=== PATIENT | female | born 1960 | race Caucasian/White ===

== ENCOUNTER 2020-03-19 11:24 | Inpatient (IN) | payer OTHER ==
[2020-03-19] MEDS ORDERED: PIPERACILLIN/TAZOB 4.5 GM 4.5 GM in DEXTROSE 5%-WATER 100 ML IVPB ONE ×2 (11:42→13:50)
[2020-03-19] MEDS ORDERED: VANCOMYCIN 1,000 MG in DEXTROSE 5%-WATER - 250 ML IVPB ONE (11:42)
[2020-03-19] MEDS ORDERED: SODIUM CHLORIDE 1,000 ML IV STA (11:45)
[2020-03-19] MEDS ORDERED: VANCOMYCIN 1 GRAM (PRE-DOCKED) 1,000 MG/250 ML BAG IVPB ONE (12:11)
[2020-03-19] MEDS ORDERED: ACETAMINOPHEN 1000 MG/100 ML VIAL (NON FORMULARY) IVPB ONE (12:33)
[2020-03-19 12:39] LABS: VENOUS BASE EXCESS -1.7 mmol/L (-2-2); VENOUS O2 SATURATION 55.3 % (70-80); VENOUS PCO2 39.9 mmHg (38-52); VENOUS PH 7.382 (7.310-7.410)
[2020-03-19 12:45] LABS: BASO % 0.2 % (0-2.0); HEMATOCRIT 43.3 % (32.4-45.2); LYMPH % 8.8 % (8-40); MCH 29.7 pg (25.7-33.7); MCHC 32.4 g/dl (32.0-36.0); MEAN CELL VOLUME 91.6 fl (80-96); MEAN PLT VOLUME 11.2 fl (7.5-11.1); MONO % 7.7 % (3.8-10.2); NEUT % 83.3 % (42.8-82.8); PLATELET COUNT 168 K/MM3 (134-434); RBC 4.73 M/mm3 (3.60-5.2); RDW 15.9 % (11.6-15.6); WHITE BLOOD COUNT 10.2 K/mm3 (4.0-10.0)
[2020-03-19 12:46] LABS: INR 1.11 (0.83-1.09); PROTHROMBIN TIME (PATIENT) 13.4 SEC (9.7-13.0)
[2020-03-19 12:48] LABS: ACTIVATED PTT 32.5 SECONDS (25.2-36.5)
[2020-03-19 13:07] LABS: ALBUMIN 3.2 g/dl (3.4-5.0); BLOOD UREA NITROGEN 11.1 mg/dL (7-18); CALCIUM 8.6 mg/dL (8.5-10.1); CREATININE 0.8 mg/dL (0.55-1.3); TOT PROT 6.5 g/dl (6.4-8.2)
[2020-03-19 13:16] LABS: EPI CELLS >36 /uL (0-25.1); HYALINE CASTS 36 /uL (0-3.1); PH,URINE 7.5 (5.0-8.0); URINE APPEARANCE TURBID; URINE BACTERIA >9,000 /uL (0-1359); URINE BILIRUBIN NEGATIVE (NEGATIVE); URINE COLOR DK YELLOW; URINE GLUCOSE (UA) NEGATIVE (NEGATIVE); URINE KETONE 1+ (NEGATIVE); URINE LEUK ESTERASE 3+ (NEGATIVE); URINE NITRITE POSITIVE (NEGATIVE); URINE PROTEIN 1+ (NEGATIVE); URINE WBC 7029 /uL (0-25.8)
[2020-03-19] MEDS ORDERED: PIPERACILLIN/TAZOB 4.5 GM 4.5 GM/100 ML BAG IVPB ONE (13:43)
[2020-03-19 13:46] LABS: URINE RBC 115.3 /uL (0-23.9); YEAST NON SEEN (NEGATIVE)
[2020-03-19 16:01] LABS: POTASSIUM 3.3 mmol/L (3.5-5.1)
[2020-03-19 16:03] LABS: CALCIUM 8.1 mg/dL (8.5-10.1)
[2020-03-19 16:04] LABS: BLOOD UREA NITROGEN 10.6 mg/dL (7-18)
[2020-03-19 16:07] LABS: CREATININE 0.7 mg/dL (0.55-1.3)
[2020-03-19 16:08] LABS: BILIRUBIN,TOTAL 0.6 mg/dL (0.2-1); TOT PROT 5.7 g/dl (6.4-8.2)
[2020-03-19] MEDS ORDERED: KCL 10 MEQ IVPB 10 MEQ/100 ML INFUS.BAG IVPB ONE (16:18)
[2020-03-19] MEDS: KCL 10 MEQ IVPB 10 MEQ/100 ML INFUS.BAG IVPB SCH ×3 (16:23→21:59)
[2020-03-19] MEDS: LACTATED RINGERS SOLUTION 1,000 ML/1,000 ML INFUS.BAG IV SCH (16:27)
[2020-03-19] MEDS ORDERED: KCL 10 MEQ IVPB 20 MEQ/200 ML INFUS.BAG IVPB ONE (16:30)
[2020-03-19] MEDS ORDERED: PATIENT'S OWN MEDICATION (NON-FORMULARY) (Magnesium Hydrox 2400mg/30ml 30 ML) PO SCH (16:45)
[2020-03-19] MEDS: ACETAMINOPHEN 325 MG TABLET (FP) PO SCH (16:50)
[2020-03-19] MEDS ORDERED: PIPERACILLIN/TAZOB 3.375 GM 3.375 GM/50 ML BAG IVPB ONE (20:00)
[2020-03-19] MEDS: PIPERACILLIN/TAZOB 3.375 GM 3.375 GM in DEXTROSE 5%-WATER - 50 ML IVPB SCH (20:11)
[2020-03-19] MEDS ORDERED: SENNOSIDES 8.6MG TABLET (FP) PO SCH (22:00)
[2020-03-19] MEDS ORDERED: CLOZAPINE 150 MG PO SCH (22:00)
[2020-03-19] MEDS: INSULIN SLIDING SCALE (NOVOLOG) 1 VIAL SQ SCH (22:32)
[2020-03-19] MEDS: LATANOPROST 0.005% OPHTH SOLN 2.5ML BOTTLE OU SCH (22:55)
[2020-03-20] MEDS: clonazePAM 0.5 MG TABLET PO SCH ×2 (00:11→11:22)
[2020-03-20] MEDS: ACETAMINOPHEN 325 MG TABLET (FP) PO SCH ×5 (00:12→23:13)
[2020-03-20 00:44] VITALS: BMI 37.4
[2020-03-20] MEDS ORDERED: DEXTROSE 5%-WATER - 50 ML IVPB ONE ×3 (01:42→11:18)
[2020-03-20] MEDS ORDERED: PIPERACILLIN/TAZOBACTAM 3.375 GM VIAL IVPB ONE ×2 (01:42→09:16)
[2020-03-20] MEDS: PIPERACILLIN/TAZOB 3.375 GM 3.375 GM in DEXTROSE 5%-WATER - 50 ML IVPB SCH ×2 (03:23→09:19)
[2020-03-20] MEDS: LACTATED RINGERS SOLUTION 1,000 ML/1,000 ML INFUS.BAG IV SCH (05:01)
[2020-03-20] MEDS: INSULIN SLIDING SCALE (NOVOLOG) 1 VIAL SQ SCH ×4 (06:17→23:12)
[2020-03-20] MEDS ORDERED: CLOZAPINE PO SCH ×2 (07:00→08:30)
[2020-03-20] MEDS ORDERED: POTASSIUM CHLORIDE TABS 20 MEQ TABLET.ER (FP) PO ONE (07:50)
[2020-03-20 08:33] LABS: BASO % 0.4 % (0-2.0); EOS % 0.3 % (0-4.5); HEMATOCRIT 39.1 % (32.4-45.2); HEMOGLOBIN 12.8 GM/dL (10.7-15.3); LYMPH % 18.4 % (8-40); MCH 29.4 pg (25.7-33.7); MCHC 32.7 g/dl (32.0-36.0); MEAN CELL VOLUME 89.7 fl (80-96); MEAN PLT VOLUME 10.5 fl (7.5-11.1); MONO % 6.4 % (3.8-10.2); NEUT % 74.5 % (42.8-82.8); PLATELET COUNT 155 K/MM3 (134-434); RBC 4.36 M/mm3 (3.60-5.2); RDW 15.8 % (11.6-15.6); WHITE BLOOD COUNT 5.5 K/mm3 (4.0-10.0)
[2020-03-20] MEDS ORDERED: CEFAZOLIN 1 GM in DEXTROSE 5%-WATER - 50 ML IVPB SCH (10:00)
[2020-03-20 10:02] LABS: POTASSIUM 4.2 mmol/L (3.5-5.1)
[2020-03-20 10:05] LABS: BLOOD UREA NITROGEN 7.4 mg/dL (7-18)
[2020-03-20 10:06] LABS: CALCIUM 8.6 mg/dL (8.5-10.1); MAGNESIUM 2.2 mg/dL (1.8-2.4)
[2020-03-20 10:08] LABS: CREATININE 0.5 mg/dL (0.55-1.3); PHOSPHOROUS 2.4 mg/dL (2.5-4.9)
[2020-03-20 10:09] LABS: BILIRUBIN,TOTAL 0.7 mg/dL (0.2-1); TOT PROT 5.8 g/dl (6.4-8.2)
[2020-03-20] MEDS: ENOXAPARIN NA (PORCINE) 40 MG/0.4 ML DISP.SYRIN SQ SCH (10:15)
[2020-03-20 10:30] LABS: PLATELET ESTIMATE DECREASED
[2020-03-20] MEDS ORDERED: SODIUM PHOSPHATE/NA BIPHOS 133 ML ENEMA RC ONE (11:15)
[2020-03-20] MEDS ORDERED: ceFAZolin SODIUM 1 GM VIAL ONE (11:18)
[2020-03-20] MEDS: ASPIRIN 81 MG CHEWABLE TABLETS PO SCH (11:21)
[2020-03-20] MEDS: ATORVASTATIN CA 10 MG TABLET (FP) PO SCH (11:21)
[2020-03-20] MEDS: LEVOTHYROXINE NA 100 MCG TABLET (FP) PO SCH (11:21)
[2020-03-20] MEDS: POLYETHYLENE GLYCOL 3350 119 GM BTL PO SCH (11:23)
[2020-03-20] MEDS ORDERED: POTASSIUM PHOSPHATE 30 MM in SODIUM CHLORIDE 500 ML IVPB ONE (11:30)
[2020-03-20] MEDS ORDERED: PT OWN MED DRAWER 7, Y5N ONE ×2 (13:01→22:23)
[2020-03-20] MEDS: SODIUM CHLORIDE 1,000 ML IV SCH (14:21)
[2020-03-20] MEDS ORDERED: cefTRIAXone SODIUM 1 GM VIAL ONE (16:59)
[2020-03-20] MEDS: CEFTRIAXONE 1 GM in DEXTROSE 5%-WATER - 50 ML IVPB SCH (17:02)
[2020-03-20] MEDS: guaiFENesin 600 MG TABLET.ER (FP) PO SCH (23:13)
[2020-03-20] MEDS: CLOZAPINE PO SCH (23:13)
[2020-03-20] MEDS: LATANOPROST 0.005% OPHTH SOLN 2.5ML BOTTLE OU SCH (23:14)
[2020-03-21] MEDS: ACETAMINOPHEN 325 MG TABLET (FP) PO SCH ×4 (05:28→22:54)
[2020-03-21] MEDS: INSULIN SLIDING SCALE (NOVOLOG) 1 VIAL SQ SCH ×4 (06:36→22:45)
[2020-03-21 07:59] LABS: HEMATOCRIT 39.2 % (32.4-45.2); HEMOGLOBIN 12.7 GM/dL (10.7-15.3); MCH 29.1 pg (25.7-33.7); MCHC 32.5 g/dl (32.0-36.0); MEAN CELL VOLUME 89.6 fl (80-96); MEAN PLT VOLUME 9.9 fl (7.5-11.1); PLATELET COUNT 159 K/MM3 (134-434); RBC 4.37 M/mm3 (3.60-5.2); RDW 15.3 % (11.6-15.6); WHITE BLOOD COUNT 4.7 K/mm3 (4.0-10.0)
[2020-03-21 08:20] LABS: BLOOD UREA NITROGEN 6.4 mg/dL (7-18); CALCIUM 8.6 mg/dL (8.5-10.1); MAGNESIUM 2.3 mg/dL (1.8-2.4)
[2020-03-21 08:24] LABS: CREATININE 0.5 mg/dL (0.55-1.3)
[2020-03-21] MEDS ORDERED: cefTRIAXone SODIUM 1 GM VIAL ONE (09:11)
[2020-03-21] MEDS ORDERED: DEXTROSE 5%-WATER - 50 ML IVPB ONE (09:11)
[2020-03-21] MEDS: CEFTRIAXONE 1 GM in DEXTROSE 5%-WATER - 50 ML IVPB SCH (09:13)
[2020-03-21] MEDS: LEVOTHYROXINE NA 100 MCG TABLET (FP) PO SCH (09:14)
[2020-03-21] MEDS: ENOXAPARIN NA (PORCINE) 40 MG/0.4 ML DISP.SYRIN SQ SCH (09:14)
[2020-03-21] MEDS: ATORVASTATIN CA 10 MG TABLET (FP) PO SCH (09:14)
[2020-03-21] MEDS: ASPIRIN 81 MG CHEWABLE TABLETS PO SCH (09:14)
[2020-03-21] MEDS: guaiFENesin 600 MG TABLET.ER (FP) PO SCH ×2 (09:14→22:54)
[2020-03-21] MEDS: SODIUM CHLORIDE 1,000 ML IV SCH (09:15)
[2020-03-21] MEDS: POLYETHYLENE GLYCOL 3350 119 GM BTL PO SCH (09:22)
[2020-03-21] MEDS: LATANOPROST 0.005% OPHTH SOLN 2.5ML BOTTLE OU SCH (22:46)
[2020-03-21] MEDS ORDERED: PT OWN MED DRAWER 7, Y5N ONE (22:50)
[2020-03-21] MEDS: CLOZAPINE PO SCH (22:56)
[2020-03-22] MEDS: ACETAMINOPHEN 325 MG TABLET (FP) PO SCH ×3 (04:48→16:50)
[2020-03-22] MEDS: SODIUM CHLORIDE 1,000 ML IV SCH ×2 (04:54→16:49)
[2020-03-22] MEDS: INSULIN SLIDING SCALE (NOVOLOG) 1 VIAL SQ SCH ×3 (06:17→17:06)
[2020-03-22] MEDS ORDERED: PT OWN MED DRAWER 7, Y5N ONE ×2 (06:19→09:34)
[2020-03-22] MEDS ORDERED: CLOZAPINE PO SCH (07:00)
[2020-03-22] MEDS ORDERED: cloZAPine 25 MG TABLET PO SCH (07:00)
[2020-03-22 09:15] LABS: HEMATOCRIT 39.2 % (32.4-45.2); HEMOGLOBIN 12.8 GM/dL (10.7-15.3); MCHC 32.5 g/dl (32.0-36.0); MEAN CELL VOLUME 89.2 fl (80-96); PLATELET COUNT 192 K/MM3 (134-434)
[2020-03-22] MEDS ORDERED: cefTRIAXone SODIUM 1 GM VIAL ONE (09:35)
[2020-03-22] MEDS ORDERED: DEXTROSE 5%-WATER - 50 ML IVPB ONE (09:35)
[2020-03-22] MEDS: CEFTRIAXONE 1 GM in DEXTROSE 5%-WATER - 50 ML IVPB SCH (09:37)
[2020-03-22] MEDS: ASPIRIN 81 MG CHEWABLE TABLETS PO SCH (09:38)
[2020-03-22] MEDS: LEVOTHYROXINE NA 100 MCG TABLET (FP) PO SCH (09:38)
[2020-03-22] MEDS: guaiFENesin 600 MG TABLET.ER (FP) PO SCH (09:38)
[2020-03-22] MEDS: ENOXAPARIN NA (PORCINE) 40 MG/0.4 ML DISP.SYRIN SQ SCH (09:38)
[2020-03-22 09:41] LABS: BLOOD UREA NITROGEN 6.2 mg/dL (7-18); CALCIUM 8.9 mg/dL (8.5-10.1)
[2020-03-22 09:44] LABS: CREATININE 0.5 mg/dL (0.55-1.3)
[2020-03-22] MEDS ORDERED: PATIENT'S OWN MEDICATION (NON-FORMULARY) (Magnesium Hydrox 2400mg/30ml 30 ML) PO SCH (09:45)
[2020-03-22] MEDS: POLYETHYLENE GLYCOL 3350 119 GM BTL PO SCH (09:50)
[2020-03-22 15:05] VITALS: BP 127/72; PULSE 81; TEMP 98.1
[2020-03-22] MEDS ORDERED: ATORVASTATIN CA 10 MG TABLET (FP) PO SCH (22:00)
== END 2020-03-22 18:30 | DRG 720 ==
LOC: JER 11:24 → JERBED 15:35 → J6S 20:45
PROVIDERS: ATTEND Internal Medicine
DX: A41.9 Sepsis, unspecified organism (principal); N39.0 Urinary tract infection, site not specified; E03.9 Hypothyroidism, unspecified; J96.01 Acute respiratory failure with hypoxia; F25.9 Schizoaffective disorder, unspecified; I95.9 Hypotension, unspecified; G93.41 Metabolic encephalopathy; R13.10 Dysphagia, unspecified; E11.65 Type 2 diabetes mellitus with hyperglycemia; F03.90 Unspecified dementia, unspecified severity, without behavioral disturbance, psychotic disturbance, mood disturbance, and anxiety; R00.0 Tachycardia, unspecified; E78.5 Hyperlipidemia, unspecified
CPT/HCPCS: 36415; 70450-TC; 71045-TC-FY; 72125-TC; 80048; 80053; 81003; 82550; 82607; 82803; 82962; 83036; 83605; 83735; 84100; 84443; 84484; 85025; 85027; 85610; 85651; 85730; 86140; 86780; 87040; 87086; 87804; 93005; 93010; 97161-GP; 99291; C9803; J0131; U0003